=== PATIENT | female | born 2000 | race Caucasian/White ===

== ENCOUNTER 2023-12-24 10:11 | Outpatient (CLI) | payer OTHER, SELFPAY ==
[2023-12-24 09:27] LABS: Abs Immature Grans 0.01 10^3/uL (0.0-0.06); Absolute Basophil Count 0.02 10^3/uL (0.0-0.2); Absolute Eosinophil Count 0.07 10^3/uL (0.0-0.7); Absolute Lymphocyte Count 1.49 10^3/uL (1.2-3.4); Absolute Monocyte Count 0.49 10^3/uL (0.1-0.8); Absolute Neutrophil Count 3.62 10^3/uL (1.2-6.7); Basophils % 0.4; Eosinophils % 1.2; HCT 42.8 % (36.0-46.0); HGB 14.3 g/dL (11.2-15.7); Immature Grans % 0.2; Lymphocytes % 26.1; MCH 29.7 pg (27.0-33.0); MCHC 33.4 % (32.0-36.0); MCV 89 fL (80-95); MPV 9.3 fL (8.0-11.0); Monocytes % 8.6; Neutrophils % 63.5; Platelet Count 222 10^3/uL (130-400); RBC 4.82 10^6/uL (3.93-5.22); RDW 12.3 % (11.7-14.6); RDW-SD 39.9 fL
[2023-12-24 09:37] LABS: ESR < 1 mm/hr (0-20)
[2023-12-24 10:10] LABS: ALT 25 U/L (14-59); AST 17 U/L (15-37); Albumin 4.2 g/dL (3.4-5.0); Alkaline Phosphatase 55 U/L (46-116); BUN 13 mg/dL (7-18); Bilirubin, Total 0.5 mg/dL (0.2-1.0); C-Reactive Protein < 0.50 mg/dL (<or=0.5); CREATININE 0.9 mg/dL (0.55-1.02); Calcium 8.7 mg/dL (8.5-10.1); Chloride 105 mmol/L (98-107); Estimated GFR 90.98 (mL/min/1.73m2); Glucose 96 mg/dL (74-106); Potassium 4.1 mmol/L (3.5-5.1); Sodium 143 mmol/L (136-145); Total Protein 7.4 g/dL (6.4-8.2)
== END 2023-12-24 10:12 | disposition home or self-care (01) ==
LOC: LBO 10:11
PROVIDERS: PCP Nurse Practitioner Adult Health; Visit Provider Family Medicine
DX: R50.9 Fever, unspecified (principal); R00.0 Tachycardia, unspecified
CPT/HCPCS: 36415; 80053; 85652; 84443; 85025; 86140

== ENCOUNTER 2024-01-11 03:19 | Outpatient (CLI) | payer OTHER, SELFPAY ==
[2024-01-14 11:35] LABS: Lyme Ab w Rflx to Lyme Confirm Negative (Negative)
[2024-01-15 15:25] LABS: Anaplasma phagocytophilum Negative (Negative); B. miyamotoi PCR Negative (Negative); Babesia divergens/MO-1 Negative (Negative); Babesia duncani Negative (Negative); Babesia microti Negative (Negative); Ehrlichia chaffeensis Negative (Negative); Ehrlichia ewingii/canis Negative (Negative); Ehrlichia muris eauclairensis Negative (Negative)
== END 2024-01-11 03:20 | disposition home or self-care (01) ==
LOC: LBO 03:19
PROVIDERS: PCP Nurse Practitioner Adult Health; Referring Provider Nurse Practitioner; Visit Provider Nurse Practitioner
DX: R51.9 Headache, unspecified (principal); R42 Dizziness and giddiness
CPT/HCPCS: 36415; 87798; 86618

== ENCOUNTER 2024-05-22 08:02 | Outpatient (RCR) | payer OTHER, SELFPAY ==
--- NOTE | 2024-05-22 08:00 | HOLTER_ITS ---
APPROVED REPORT Conclusion This a 48-hour Holter monitor Rhythm throughout was sinus with an average heart rate of 81. Minimum was 62, maximum 123 There was 1 isolated ventricular premature complex There was no atrial fibrillation, no high-grade AV block, no pauses greater than 3 seconds No patient symptoms were reported
== END 2024-05-24 23:59 | disposition home or self-care (01) ==
LOC: CARDOPNVT 08:02
PROVIDERS: PCP Nurse Practitioner Adult Health; Visit Provider Internal Medicine Cardiovascular Disease
DX: R42 Dizziness and giddiness (principal)
CPT/HCPCS: 93225

== ENCOUNTER 2024-05-25 11:07 | Outpatient (RCR) | payer OTHER, SELFPAY | END 2024-06-23 23:59 | disposition home or self-care (01) | LOC: CARDOPNVT 11:07 | PROVIDERS: PCP Nurse Practitioner Adult Health; Visit Provider Internal Medicine Cardiovascular Disease | DX: R42 Dizziness and giddiness (principal) | CPT/HCPCS: 93226 ==

== ENCOUNTER 2024-08-08 09:09 | Outpatient (CLI) | payer OTHER, SELFPAY | END 2024-08-08 09:10 | disposition home or self-care (01) | LOC: LBO 09:09 | PROVIDERS: PCP Nurse Practitioner Adult Health; Visit Provider Acupuncturist | DX: R42 Dizziness and giddiness (principal); R53.83 Other fatigue | CPT/HCPCS: 36415; 82533 ==

== ENCOUNTER 2024-08-10 09:34 | Outpatient (REF) | payer OTHER, SELFPAY ==
[2024-08-14 18:06] LABS: Urine Volume 2100 mL
[2024-08-19 20:13] LABS: Metanephrines, U 109 mcg/24 h; Normetanephrine, U 267 mcg/24 h; Total Metanephrines, U 376 mcg/24 h; Urine Volume 2100 mL
== END 2024-08-10 09:35 | disposition home or self-care (01) ==
LOC: LBN 09:34
PROVIDERS: PCP Nurse Practitioner Adult Health; Visit Provider Acupuncturist
DX: R42 Dizziness and giddiness (principal); R53.83 Other fatigue
CPT/HCPCS: 82384; 83835

== ENCOUNTER 2025-06-09 03:51 | Outpatient (CLI) | payer OTHER, SELFPAY ==
[2025-06-09 14:40] LABS: Abs Immature Grans 0.03 10^3/uL (0.0-0.06); HCT 38.9 % (36.0-46.0); HGB 13.3 g/dL (11.2-15.7); Immature Grans % 0.4 %; MCH 29.2 pg (27.0-33.0); MCHC 34.2 % (32.0-36.0); MCV 85 fL (80-95); MPV 9.0 fL (8.0-11.0); Platelet Count 225 10^3/uL (130-400); RBC 4.56 10^6/uL (3.93-5.22); RDW 13.0 % (11.7-14.6); RDW-SD 40.0 fL; WBC 8.28 10^3/uL (4.4-10.8)
[2025-06-09 16:02] LABS: ALT 22 U/L (14-59); AST 15 U/L (15-37); Albumin 3.4 g/dL (3.4-5.0); Alkaline Phosphatase 40 U/L (46-116); Anion Gap 9.2 mmol/L (3-11); BUN 9 mg/dL (7-18); Bilirubin, Total 0.3 mg/dL (0.2-1.0); CO2 26.8 mmol/L (21.0-32.0); Calcium 9.1 mg/dL (8.5-10.1); Chloride 103 mmol/L (98-107); Estimated GFR 132.57 (mL/min/1.73m2); Glucose 83 mg/dL (74-106); Potassium 3.8 mmol/L (3.5-5.1); Sodium 139 mmol/L (136-145); Total Protein 6.7 g/dL (6.4-8.2)
[2025-06-10 09:58] LABS: Hepatitis C Ab w Rflx HCV PCR Negative (Negative)
[2025-06-10 10:15] LABS: HIV-1/2 Ag & Ab Screen Negative (Negative); Rubella IgG Ab (UVM) Positive (See Note)
[2025-06-11 18:01] LABS: Syphilis IgG w/Reflex Nonreactive (Nonreactive)
== END 2025-06-09 03:52 | disposition home or self-care (01) ==
LOC: LBO 03:51
PROVIDERS: PCP Nurse Practitioner Adult Health; Visit Provider Advanced Practice Midwife
DX: Z34.91 Encounter for supervision of normal pregnancy, unspecified, first trimester (principal); R03.0 Elevated blood-pressure reading, without diagnosis of hypertension
CPT/HCPCS: 36415; 80053; 86787; 86803; 86850; 86900; 86901; 87340; 87389; 85025; 86762; 86780

== ENCOUNTER 2025-06-09 13:26 | Outpatient (REF) | payer OTHER, SELFPAY ==
[2025-06-10 13:29] LABS: Chlamydia Result Negative (Negative); GC Result Negative (Negative)
== END 2025-06-09 13:27 | disposition home or self-care (01) ==
LOC: LBN 13:26
PROVIDERS: PCP Nurse Practitioner Adult Health; Visit Provider Advanced Practice Midwife
DX: Z34.91 Encounter for supervision of normal pregnancy, unspecified, first trimester (principal)
CPT/HCPCS: 87491; 87591; 87086

== ENCOUNTER 2025-06-24 04:07 | Outpatient (CLI) | payer OTHER, SELFPAY ==
[2025-06-24 15:10] LABS: PROTEIN < 6.0 mg/dL
[2025-06-29 12:17] LABS: AFP 20.6 ng/mL; INHIBIN 154 pg/mL; Prev Down(T21)/Trisomy Pregnan No; Prev Pregnancy w/NTD No; RECOMMENDED FOLLOW UP None.; hCG, TOTAL 34.9 IU/mL; hCG, TOTAL MoM 0.94 MoM; uE3 0.52 ng/mL
== END 2025-06-24 04:08 | disposition home or self-care (01) ==
LOC: LBO 04:07
PROVIDERS: Advanced Practice Midwife; PCP Nurse Practitioner Adult Health; Visit Provider Advanced Practice Midwife
DX: Z34.91 Encounter for supervision of normal pregnancy, unspecified, first trimester (principal); R03.0 Elevated blood-pressure reading, without diagnosis of hypertension
CPT/HCPCS: 36415; 81511; 82565; 84156

== ENCOUNTER 2025-09-21 00:49 | Outpatient (CLI) | payer OTHER, SELFPAY ==
[2025-09-21 07:54] LABS: Abs Immature Grans 0.08 10^3/uL (0.0-0.06); HCT 36.6 % (36.0-46.0); HGB 12.6 g/dL (11.2-15.7); Immature Grans % 1.2 %; MCH 30.5 pg (27.0-33.0); MCHC 34.4 % (32.0-36.0); MCV 89 fL (80-95); MPV 9.1 fL (8.0-11.0); Platelet Count 194 10^3/uL (130-400); RBC 4.13 10^6/uL (3.93-5.22); RDW 13.5 % (11.7-14.6); RDW-SD 43.8 fL; WBC 6.83 10^3/uL (4.4-10.8)
[2025-09-21 08:18] LABS: Glucose,1 Hr (Glucola) 107 mg/dL (80-140)
[2025-09-21 08:26] LABS: Hemoglobin A1C 4.8 % (<5.7)
== END 2025-09-21 00:50 | disposition home or self-care (01) ==
LOC: LBO 00:49
PROVIDERS: Obstetrics & Gynecology; PCP Nurse Practitioner Adult Health; Visit Provider Advanced Practice Midwife
DX: Z34.93 Encounter for supervision of normal pregnancy, unspecified, third trimester (principal); O26.893 Other specified pregnancy related conditions, third trimester; Z67.91 Unspecified blood type, Rh negative; Z68.30 Body mass index [BMI] 30.0-30.9, adult
CPT/HCPCS: 36415; 82950; 86850; 86900; 86901; 90384; 83036; 85025